=== PATIENT | female | born 1995 | race Asian ===

== ENCOUNTER 2016-12-23 10:31 | Emergency (ER) | payer OTHER ==
[~2016-12-23] VITALS: Ht 157.5 cm; Wt 69.7 kg
[~2016-12-23 10:31] MED LIST: ACNE CREAM TOP; MOME6000 NAE; ONDA4TAB10 SL
[2016-12-23 10:34] VITALS: TEMP 36.7; Ht 157.5 cm; Wt 69.7 kg
[2016-12-23] MEDS ORDERED: ONDANSETRON INJ 2 MG/ML 2 ML VIAL IV STA (11:02)
[2016-12-23] MEDS ORDERED: SODIUM CHLORIDE 0.9% 1000ML 1,000 ML IV ONE (11:15)
[2016-12-23] MEDS ORDERED: GI COCKTAIL PO ONE (11:15)
[2016-12-23] MEDS ORDERED: PANTOprazole INJ 40 MG in SYRINGE 0 ML IV ONE (11:15)
[2016-12-23 11:40] LABS: BASO % 0.5 %; BASO ABS # 0.04 K/uL (0-0.2); COMPLETE YES; HEMATOCRIT 40.9 % (37-47); IG% 0.3 %; LYMPH % 35.9 %; LYMPH ABS # 2.79 K/uL (1.2-3.4); MEAN CORPUSCULAR HEMOGLOBIN 26.3 pg (25-34); MEAN CORPUSCULAR HGB CONC 32.5 g/dl (32-36); MEAN PLATELET VOLUME 9.5 fL (7.4-10.4); MONO % 7.5 %; NEUT % 54.8 %; PLATELET COUNT 325 K/uL (130-400); RED BLOOD COUNT 5.05 M/uL (4.2-5.4); WHITE BLOOD COUNT 7.77 K/uL (4.8-10.8)
[2016-12-23] MEDS ORDERED: ALUMINUM/MAGNESIUM SUSP 30 ML UDC ONE (11:48)
[2016-12-23] MEDS ORDERED: LIDOCAINE HCL 2% VISC SOLN 20 ML UDC ONE (11:48)
[2016-12-23 11:55] LABS: URINE APPEARANCE CLEAR (CLEAR); URINE BILIRUBIN NEG (NEG); URINE COLOR YELLOW; URINE NITRITE NEG (NEG); UROBILINOGEN NEG (NEG); ZZUR CULT IF INDIC CLEAN CATCH NO
[2016-12-23 12:02] LABS: CALCIUM 9.2 mg/dl (8.5-10.1); CREATININE 0.79 mg/dl (0.60-1.20); MAGNESIUM 2.2 mg/dl (1.8-2.4); POTASSIUM 4.1 mmol/L (3.5-5.1)
[2016-12-23 12:07] LABS: MANUAL MICROSCOPIC REQUIRED? NO; REVIEW REQ? NO
--- NOTE | 2016-12-23 12:31 | DIAGNOSTIC IMAGING REPORT ---
ABDOMEN 2VIEW W/PA CHEST RTN CLINICAL HISTORY: Epigastric abd pain. Bloody emesis nausea. Vomiting. COMPARISON STUDY: 07/02/2016 FINDINGS: The soft tissues, psoas shadows, renal outlines and intestinal gas pattern appear normal. There is no evidence for bowel obstruction. There is no evidence for free intraperitoneal air. No abnormal abdominal calcifications are seen. A frontal view of the chest was performed and is unremarkable. IMPRESSION: Normal study. Electronically signed by: Josep Hernández M.D. 12/23/2016 12:29 PM Dictated Date/Time: 12/23/2016 12:28 PM
[2016-12-23 13:12] LABS: PARTIAL THROMBOPLASTIN RATIO 1.2; PROTHROMBIN TIME (PATIENT) 11.2 SECONDS (9.0-12.0)
[2016-12-23] MEDS ORDERED: ONDA4TAB10 SL (14:10)
[2016-12-23] MEDS ORDERED: PANT40TA PO (14:10)
[2016-12-23 14:28] VITALS: BP 87/49; PULSE 72; O2SAT 97
--- NOTE | 2016-12-24 07:19 | EMERGENCY ROOM VISIT NOTE ---
History First contact with patient: 10:46 Chief Complaint: ABDOMINAL PAIN Stated Complaint: VOMIT W/RED BLOOD, SEVERE STOMACH/CHEST PAIN Nursing Triage Summary: Pt has had diarrhea for 2 weeks with nausea. Pt was walking in a [place] [employer] [place] and started to experince severe abdominal pain. Pt stated that she felt as if she was going to pass out. Pt then went to the restroom and threw up. Pt reports bright red blood in her vomit. Pt states even after 15 mins she still had blood in her vomit. Today pt has not vomited. Pt still has nausea and abdominal pain. Pt states that it hurts with urination. Pt thinks she may be dehydrated. History of Present Illness The patient is a 21 year old female who presents to the Emergency Room with complaints of intermittent episodes of diarrhea for the past 2 weeks with associated nausea. The patient states that she went to the dining [place] on[place] last night for dinner, and after eating had abdominal cramping and epigastric pain. She went to the bathroom and had emesis 1, and states that there was streaking bright red blood in her emesis. The patient states that she had a persistent taste of blood in the back of her throat throughout the night. She was able to sleep well last night without significant difficulty, however when she woke she still had her nausea. She has not vomited today. The patient does not report significant tobacco or alcohol use. She does not have a known history of GERD but is concerned about a stomach ulcer. The patient continues with some epigastric abdominal pain. No recent travel history. No recent antibiotic use. The patient is otherwise healthy and has not taken anything [id number] for her discomfort which she rates a 5/10. Review of Systems More than 10 systems were reviewed and otherwise negative with the exception of history of present illness. Past Medical/Surgical History Medical Problems: (1) Eustachian tube disorder (2) Intractable nausea and vomiting (3) Mood disorder (4) No significant medical problems Family History Patient reports no known family medical history. Social History Smoking Status: Never Smoker Marital Status: single Housing Status: lives with roommate Occupation Status: student Current/Historical Medications Scheduled Ondasetron Odt (Zofran Odt), 4 MG SL Q6H Pantoprazole (Protonix), 40 MG PO DAILY Allergies Coded Allergies: Amoxicillin (Verified Allergy, Unknown, hives, 12/23/16) Penicillins (Verified Allergy, Unknown, hives, 12/23/16) Sulfa Antibiotics (Verified Allergy, Unknown, hives, 12/23/16) Physical Exam Vital Signs Date Time Temp Pulse Resp B/P Pulse Ox O2 Delivery O2 Flow Rate FiO2 12/23/16 14:28 72 18 87/49 97 Room Air 12/23/16 12:39 18 116/60 Room Air 12/23/16 10:34 36.7 68 18 115/65 99 Room Air Pain Rating (0-10): 4.0 Physical Exam VITALS: Vitals are noted on the nurse's note and reviewed by myself. Vital signs stable. GENERAL: Well-developed, well-nourished, female, who is in no acute distress and resting comfortably. Patient is cooperative with the examination. HEAD: Normocephalic atraumatic. EARS: External ear normal. External auditory canals clear, tympanic membranes pearly phillip without erythema or effusion bilaterally. EYES: Pupils equal round and reactive to light and accommodation. Conjunctivae without injection, sclerae without icterus. Extraocular movements intact. NOSE: Patent, turbinates without inflammation or discharge. MOUTH: Mucous membranes moist. Tonsils are not enlarged. Pharynx without erythema, blood, or exudate. Uvula midline. Airway patent. NECK: Supple without nuchal rigidity. No lymphadenopathy. No thyromegaly. Cervical spine is nontender. HEART: Regular rate and rhythm without murmurs gallops or rubs. LUNGS: Clear to auscultation bilaterally without wheezes, rales or rhonchi. No retractions or accessory muscle use. ABDOMEN: Positive normal bowel sounds x 4. Soft, nontender, without masses or organomegaly. No guarding or rebound tenderness. MUSCULOSKELETAL: No muscle atrophy, erythema, or edema noted. Full range of motion without joint tenderness in all extremities. Medical Decision & Procedures ER Provider Diagnostic Interpretation: ABDOMEN 2VIEW W/PA CHEST RTN CLINICAL HISTORY: Epigastric abd pain. Bloody emesis nausea. Vomiting. COMPARISON STUDY: 07/02/2016 FINDINGS: The soft tissues, psoas shadows, renal outlines and intestinal gas pattern appear normal. There is no evidence for bowel obstruction. There is no evidence for free intraperitoneal air. No abnormal abdominal calcifications are seen. A frontal view of the chest was performed and is unremarkable. IMPRESSION: Normal study. Laboratory Results 12/23/16 11:25 Red Blood Count 5.05, Mean Corpuscular Volume 81.0, Mean Corpuscular Hemoglobin 26.3, Mean Corpuscular Hemoglobin Concent 32.5, Mean Platelet Volume 9.5, Neutrophils (%) (Auto) 54.8, Lymphocytes (%) (Auto) 35.9, Monocytes (%) (Auto) 7.5, Eosinophils (%) (Auto) 1.0, Basophils (%) (Auto) 0.5, Neutrophils # (Auto) 4.26, Lymphocytes # (Auto) 2.79, Monocytes # (Auto) 0.58, Eosinophils # (Auto) 0.08, Basophils # (Auto) 0.04 12/23/16 11:25 Test 12/23/16 11:24 12/23/16 11:25 12/23/16 12:50 Urine Color YELLOW Urine Appearance CLEAR (CLEAR) Urine pH 8.0 (4.5-7.5) Urine Specific Spray 1.010 (1.000-1.030) Urine Protein NEG (NEG) Urine Glucose (UA) NEG (NEG) Urine Ketones NEG (NEG) Urine Occult Blood NEG (NEG) Urine Nitrite NEG (NEG) Urine Bilirubin NEG (NEG) Urine Urobilinogen NEG (NEG) Urine Leukocyte Esterase NEG (NEG) Urine Test NEG (NEG) White Blood Count 7.77 K/uL (4.8-10.8) Red Blood Count 5.05 M/uL (4.2-5.4) Hemoglobin 13.3 g/dL (12.0-16.0) Hematocrit 40.9 % (37-47) Mean Corpuscular Volume 81.0 fL (80-100) Mean Corpuscular Hemoglobin 26.3 pg (25-34) Mean Corpuscular Hemoglobin Concent 32.5 g/dl (32-36) Platelet Count 325 K/uL (130-400) Mean Platelet Volume 9.5 fL (7.4-10.4) Neutrophils (%) (Auto) 54.8 % Lymphocytes (%) (Auto) 35.9 % Monocytes (%) (Auto) 7.5 % Eosinophils (%) (Auto) 1.0 % Basophils (%) (Auto) 0.5 % Neutrophils # (Auto) 4.26 K/uL (1.4-6.5) Lymphocytes # (Auto) 2.79 K/uL (1.2-3.4) Monocytes # (Auto) 0.58 K/uL (0.11-0.59) Eosinophils # (Auto) 0.08 K/uL (0-0.5) Basophils # (Auto) 0.04 K/uL (0-0.2) RDW Standard Deviation 39.3 fL (36.4-46.3) RDW Coefficient of Variation 13.2 % (11.5-14.5) Immature Granulocyte % (Auto) 0.3 % Immature Granulocyte # (Auto) 0.02 K/uL (0.00-0.02) Anion Gap 7.0 mmol/L (3-11) Est Creatinine Clear Calc Drug Dose 101.3 ml/min Estimated GFR () 122.3 Estimated GFR (Non- 105.5 BUN/Creatinine Ratio 10.0 (10-20) Calcium Level 9.2 mg/dl (8.5-10.1) Magnesium Level 2.2 mg/dl (1.8-2.4) Total Bilirubin 0.6 mg/dl (0.2-1) Aspartate Amino Transf (AST/SGOT) 20 U/L (15-37) Alanine Aminotransferase (ALT/SGPT) 25 U/L (12-78) Alkaline Phosphatase 65 U/L (45-117) Total Protein 8.2 gm/dl (6.4-8.2) Albumin 4.0 gm/dl (3.4-5.0) Globulin 4.2 gm/dl (2.5-4.0) Albumin/Globulin Ratio 1.0 (0.9-2) Lipase 172 U/L (73-393) Chemistry Specimen Hemolysis Prothrombin Time 11.2 SECONDS (9.0-12.0) Prothromb Time International Ratio 1.0 (0.9-1.1) Activated Partial Thromboplast Time 31.3 SECONDS (21.0-31.0) Partial Thromboplastin Ratio 1.2 Medications Administered Medications (Trade) Dose Ordered Sig/Walter Route Start Time Stop Time Status Last Admin Dose Admin Sodium Chloride (Nss 1000ml) 1,000 ml @ 999 mls/hr Q1H1M ONCE IV 12/23/16 11:15 12/23/16 12:15 DC 12/23/16 11:49 999 MLS/HR Ondansetron HCl 4 mg 4 mg NOW STAT IV 12/23/16 11:02 12/23/16 11:06 DC 12/23/16 11:50 4 MG Pantoprazole Sodium/Syringe (Protonix Inj/ Syringe) 10 ml @ 5 mls/min NOW ONCE IV 12/23/16 11:15 12/23/16 11:16 DC 12/23/16 11:49 5 MLS/MIN Lidocaine HCl (Viscous Lidocaine 2% Soln) 20 ml STK-MED ONCE .ROUTE 12/23/16 11:48 12/23/16 11:49 DC 12/23/16 11:50 20 ML Al Hydroxide/Mg Hydroxide (Maalox Susp) 30 ml STK-MED ONCE .ROUTE 12/23/16 11:48 12/23/16 11:49 DC 12/23/16 11:50 30 ML ED Course Physical exam and history were performed. Nursing notes and EMR were reviewed. Patient appears to have epigastric abdominal pain with reports of blood in her emesis times one episode last night. Patient is also reported having some diarrhea symptoms for the past few weeks. She does not appear toxic on exam and her abdomen is soft and nontender. IV access was established and labs were obtained. The patient was given a GI cocktail and IV Protonix. Plain films were performed. The patient's blood work is as above and was reviewed. She does not have a significantly elevated white blood cell count, anemia, bandemia, or significant electrolyte imbalance. Lipase and transaminases are nondiagnostic. INR is normal. The patient did not have emesis here in the department. She was able to provide stool which was Hemoccult negative. Unfortunately the stool was surrounded by urine and stool cultures were not performed. X-ray was without finding. The patient remained in stable condition throughout her ER stay. Repeat abdominal examination does not show any worsening of her symptoms. I do not suspect an acute surgical abdomen. The patient did have improvement of her symptoms after GI cocktail and Protonix, and I suspect her symptoms are likely related to gastritis or possibly GERD. The patient's symptoms could also be stress-induced or foodborne. I discussed these possibilities at length with the patient. She may need to follow with GI, and will be given resources to do this if her symptoms continue. She will otherwise be given a course of Protonix to help with her symptoms. She was otherwise invited back to the ER with any new, worsening, or concerning symptoms. The chart was completed utilizing [employer] Speech Voice Recognition Software. Grammatical errors, random word insertions, pronoun errors, and incomplete sentences are an occasional consequence of this system due to software limitations, ambient noise, and hardware issues. Any formal questions or concerns about the content, text, or information contained within the body of this dictation should be directly addressed to the provider for clarification. . Medical Decision Differential diagnosis: Etiologies such as appendicitis, diverticulitis, PUD, biliary pathology, UTI, pancreatitis, obstruction, mesenteric ischemia, aortic pathology, infections, inflammatory bowel disease, renal colic, as well as others were entertained. Impression Primary Impression: Nausea and vomiting Additional Impression: Epigastric abdominal pain Departure Information Dispostion Home / Self-Care Condition GOOD Prescriptions Ondasetron Odt (ZOFRAN ODT) 4 Mg Tab 4 MG SL Q6H for Nausea, #12 TAB Prov: Alejandro Jimenez PA-C 12/23/16 Pantoprazole (Protonix) 40 Mg Tab 40 MG PO DAILY for 14 Days, #14 TAB Prov: Alejandro Jimenez PA-C 12/23/16 Referrals Meg Jaffe M.D. Forms HOME CARE DOCUMENTATION FORM, IMPORTANT VISIT INFORMATION Patient Instructions [facility] Additional Instructions You were seen and evaluated today on an emergency basis only. This is not a substitute for, or an effort to provide, complete comprehensive medical care. It is not possible to recognize and treat all injuries or illnesses in a single emergency department visit. For this reason it is recommended that you followup with gastroenterology, Dr. Jaffe's office, if any ongoing or persistent symptoms. Zofran 1 tablet every 6 hrs as needed for nausea. Take Protonix 40 mg daily for the next 2 weeks. You are welcome to return to the emergency department anytime with new, worsening, or concerning symptoms. Problem Qualifiers
== END 2016-12-23 14:30 | disposition home or self-care (01) ==
LOC: C.EDB 10:33 → C.EDC 14:30
DX: R11.2 Nausea with vomiting, unspecified (principal); R19.7 Diarrhea, unspecified; R10.13 Epigastric pain; K21.9 Gastro-esophageal reflux disease without esophagitis; Z79.899 Other long term (current) drug therapy